=== PATIENT | male | born 1935 | race Caucasian/White ===

== ENCOUNTER → 2018-02-18 | Outpatient (CLI) | payer MEDICARE, OTHER ==
[~2018-02-18] MED LIST: ACETAMINOPHEN-1 EAC1; ADULT LOW DOSE81 MG PO; ALLOPURINOL 10100 M1 PO; AMLODIPINE BESY10 MG PO; BACITRACIN15 GM TP; CARDIZEM CD180 MG PO; CATAPRES0.2 MG PO; CLONIDINE PO; COLACE100 MG PO; COUMADIN6 MG PO; D3; DARVOCET-N 1001 EAC1 PO; DIFLUCAN200 MG PO; DULCOLAX5 MG PO; KEFLEX500 M1; KEFLEX500 MG PO; LASIX 40 MG TAB40 M2 PO; LEVAQUIN 500 M500 M2 PO; LIPITOR 20 MG T20 M1 PO; LIPITOR20 MG PO; LIPITOR40 MG PO; LOPRESSOR25 PO; METOLAZONE 2.52.5 M1 PO; METOLAZONE 5 MG5 MG PO; MISCELLANEOUS; NITROSTAT0.4 MG; NORCO 5-325 TA1 EACH PO; NORFLEX100 MG PO; PERCOCET 5-3251 EACH PO; PLAVIX 75 MG TA75 MG PO; POTASSIUM20 PO; PREDNISONE 10 M10 M1 PO; PREDNISONE 10 M10 MG PO; PREVIDENT473 ML PO; RENAL MULTIVIT1 EACH PO; SORINE 80 MG TA80 M1 PO; SOTALOL160 MG PO; SPIRONOLACTONE25 M1 PO; TOPROL XL50 MG PO; TYLENOL EXTRA500 MG PO; ULTRAM 50MG TAB50 MG PO; UNICOMPLEX M TA1 TA1 PO; VITAMIN D3400 UNIT PO
[2018-02-18 11:11] LABS: ABSOLUTE BASOPHILS 0.1 thou/uL (0.0-0.2); ABSOLUTE EOSINOPHILS 0.2 thou/uL (0.0-0.7); ABSOLUTE MONOCYTES 0.6 thou/uL (0.0-1.2); ABSOLUTE NEUTROPHILS 6.4 thou/uL (1.6-8.1); BASOPHILS 0.7 %; EOSINOPHILS 2.7 %; HEMATOCRIT 42.7 % (42.0-52.0); HEMOGLOBIN 14.3 gm/dL (14.0-18.0); LYMPHOCYTES 11.7 %; MCH 33.2 pg (26.0-34.0); MCHC 33.4 g/dL (28.0-37.0); MCV 99.4 fL (80.0-100.0); MONOCYTES 7.4 %; MPV 7.9 fl. (7.2-11.1); NUCLEATED RBCS 0 /100WBC; PLATELET COUNT* 185 thou/uL (150-400); POLYS 77.5 %; RDW-CV 15.2 % (10.5-14.5); WBC 8.3 thou/uL (4.0-11.0)
[2018-02-18 11:43] LABS: ALBUMIN 3.5 g/dL (3.4-5.0); CALCIUM 9.3 mg/dL (8.5-10.1); CREATININE 2.3 mg/dL (0.6-1.3); PHOSPHORUS* 3.8 mg/dL (2.5-4.9); POTASSIUM 5.1 mmol/L (3.5-5.1)
== END ==
LOC: M.LAB 10:51
PROVIDERS: Internal Medicine Nephrology
DX: N18.4 Chronic kidney disease, stage 4 (severe) (principal); I50.9 Heart failure, unspecified

== ENCOUNTER 2018-06-01 22:21 | Inpatient (IN) | payer MEDICARE, OTHER ==
[~2018-06-01] VITALS: Ht 177.8 cm; Wt 82.6 kg
[~2018-06-01 22:21] MED LIST changes: -D3; -DIFLUCAN200 MG PO; -DULCOLAX5 MG PO; -KEFLEX500 M1; -LEVAQUIN 500 M500 M2 PO; -SPIRONOLACTONE25 M1 PO; -TYLENOL EXTRA500 MG PO; -VITAMIN D3400 UNIT PO
[2018-06-01 22:22] VITALS: BP 115/56
[2018-06-01] MEDS ORDERED: SPIRONOLACTONE25 M1 PO (22:26)
[2018-06-01] MEDS ORDERED: KEFLEX500 M1 (22:26)
[2018-06-01] MEDS ORDERED: D3 (22:27)
[2018-06-01] MEDS ORDERED: DULCOLAX5 MG PO (22:27)
[2018-06-01] MEDS ORDERED: TYLENOL EXTRA500 MG PO (22:27)
[2018-06-01 23:15] LABS: BE -2.5 mmol/L (-2 to +3); HCO3 19.8 mmol/L (22.0-26.0); PCO2 27.9 mmHg (35.0-45.0); PO2 78.9 mmHg (75.0-100.0); pH 7.468 (7.340-7.450)
[2018-06-01 23:18] LABS: URINE BILIRUBIN NEGATIVE (Negative); URINE BLOOD NEGATIVE (Negative); URINE CLARITY CLEAR; URINE COLOR YELLOW; URINE GLUCOSE-RANDOM NEGATIVE (Negative); URINE KETONES NEGATIVE (Negative); URINE LEUKOCYTES-REFLEX NEGATIVE (Negative); URINE NITRITE-REFLEX NEGATIVE (Negative); URINE PROTEIN NEGATIVE (Negative); URINE SPECIFIC GRAVITY 1.015 (1.005-1.030); URINE UROBILINOGEN 0.2 E.U./dl (0.2-1.0)
[2018-06-01 23:19] LABS: MCHC 32.7 g/dL (28.0-37.0); MCV 101.2 fL (80.0-100.0); MPV 8.6 fl. (7.2-11.1); NUCLEATED RBCS 0 /100WBC; PLATELET COUNT* 143 thou/uL (150-400); RBC 4.25 mil/uL (4.50-6.00); RDW-CV 14.5 % (10.5-14.5); WBC 7.9 thou/uL (4.0-11.0)
[2018-06-01 23:25] LABS: CALCIUM 8.4 mg/dL (8.5-10.1); CREATININE 2.5 mg/dL (0.6-1.3); POTASSIUM 3.9 mmol/L (3.5-5.1)
[2018-06-01 23:35] LABS: ALBUMIN 3.5 g/dL (3.4-5.0); MAGNESIUM 1.7 mg/dL (1.8-2.4); TOTAL BILIRUBIN 1.1 mg/dL (<0.1-1.0); TOTAL PROTEIN 6.9 g/dL (6.4-8.2); TROPONIN-I LEVEL 0.08 ng/mL (<0.06)
[2018-06-02 00:48] LABS: INR 1.1; PROTIME 11.6 Seconds (9.20-11.50)
[2018-06-02 01:11] LABS: ABSOLUTE LYMPHOCYTES 0.5 thou/uL (0.8-5.3); ABSOLUTE MONOCYTES 0.1 thou/uL (0.0-1.2); ABSOLUTE NEUTROPHILS 7.3 thou/uL (1.6-8.1); PLATELET ESTIMATE DECREASED
[2018-06-02 01:30] VITALS: BP 103/53
[2018-06-02 01:35] VITALS: BP 98/45
[2018-06-02 04:00] VITALS: BP 97/57
[2018-06-02] MEDS ORDERED: METOLAZONE 2.52.5 M1 PO (04:46)
[2018-06-02] MEDS ORDERED: POTASSIUM20 PO (04:48)
[2018-06-02] MEDS ORDERED: VITAMIN D3400 UNIT PO (04:51)
[2018-06-02 12:00] VITALS: BP 92/49
--- NOTE | 2018-06-02 12:58 | EKG ---
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 : 1935 Requested By: Stephanie Hernandez Order Number: [id number] MD: Kush Hodge Measurements Intervals [place] Rate: 132 P: [place]: QRS: 135 QRSD: 163 T: -25 QT: 361 QTc: 535 Interpretive Statements Atrial fibrillation Right bundle branch block Baseline wander in lead(s) I,II,aVR Compared to ECG 06/27/2017 17:10:53 Ventricular premature complex(es) no longer present Electronically Signed On 06-02-2018 12:58:44 CDT by Kush Hodge [email or web address] <ELECTRONICALLY SIGNED> By: Kush Hodge MD, FACC 06/02/18 1258 2229 2229 Kush Hodge MD, FAC /EPI
[2018-06-02 13:15] LABS: ALBUMIN 3.1 g/dL (3.4-5.0); CALCIUM 8.6 mg/dL (8.5-10.1); CREATININE 2.3 mg/dL (0.6-1.3); POTASSIUM 3.7 mmol/L (3.5-5.1); TOTAL PROTEIN 6.4 g/dL (6.4-8.2)
--- NOTE | 2018-06-02 13:31 | 2DMMODE ---
[place] [address] 2 D/M-MODE ECHOCARDIOGRAM Name: NOLA ONEAL Room: [address] IN [facility]#: [id number] Admission: 06/02/18 Attend Phys: Kamryn Astudillo, Discharge: Date of : 33 Date of Service: 06/02/18 1331 Report #: [id number] THIS REPORT FOR: //name// APPROVED REPORT Study performed: 06/02/2018 10:57:51 EXAM: Comprehensive 2D, Doppler, and color-flow Echocardiogram Patient Location: In-Patient Room #: [facility] Status: routine BSA: 2.05 HR: 92 bpm BP: 97/57 mmHg Rhythm: Atrial Fibrillation Other Information Study Quality: Good Indications Congestive Heart Failure Atrial Fibrillation Dizziness 2D Dimensions IVSd: 23.04 (7-11mm) LVOT Diam: 19.51 (18-24mm) LVDd: 43.29 mm PWd: 13.89 (7-11mm) Ascending Ao: 42.93 (22-36mm) LVDs: 27.01 (25-40mm) Aortic Root: 35.20 mm Volumes Left Atrial Volume (Systole) LA ESV Index: 68.20 mL/m2 Aortic Valve AoV Peak Ken.: 3.31 m/s AO Peak Gr.: 43.83 mmHg LVOT Max P.50 mmHg AO Mean Gr.: 28.24 mmHg LVOT Mean P.56 mmHg LVOT Max V: 1.06 m/s AO V2 VTI: 59.78 cm LVOT Mean V: 0.75 m/s MARY (VTI): 1.04 cm2 LVOT V1 VTI: 20.84 cm AI Gem: 3.42 m/s2 AI PHT: 284.06 [place] [address] 2 D/M-MODE ECHOCARDIOGRAM Name: NOLA ONEAL Room: [address] IN [facility].#: [id number] Admission: 06/02/18 Attend Phys: Kamryn Astudillo, Discharge: Date of : 33 Date of Service: 06/02/18 1331 Report #: [id number] Mitral Valve MV Decel. Time: 181.26 ms MV PHT: 52.57 ms MVA (PHT): 4.19 cm2 TDI Medial E' Ken.: 0.09 m/s Lateral E' Ken.: 0.08 m/s Pulmonary Valve PV Peak Ken.: 1.10 m/s PV Peak Gr.: 4.84 mmHg Tricuspid Valve RAP Estimate: 5.00 mmHg TR Peak Gr.: 25.69 mmHg RVSP: 30.69 mmHg PA Pressure: 30.69 mmHg Left Ventricle The left ventricle is normal size. There is normal LV segmental wall motion. Moderate to severe concentric left ventricular hypertrophy. Left ventricular systolic function is normal. LVEF is 55-60%.. This study is not technically sufficient to allow evaluation of the LV diastolic function due to atrial fibrillation. Right Ventricle The right ventricle is normal size. The right ventricular systolic function is normal. Atria Left atrium is moderately dilated. Right atrium is moderately dilated. Aortic Valve Severe aortic valve sclerosis. Moderate aortic regurgitation. Moderate to severe aortic stenosis. Mitral Valve The mitral valve is normal in structure. Mild mitral regurgitation. No evidence of mitral valve stenosis. Tricuspid Valve The tricuspid valve is normal in structure. Mild tricuspid regurgitation. The RVSP is 30-35 mmHg. Pulmonic Valve The pulmonary valve is normal in structure[place] [address] 2 D/M-MODE ECHOCARDIOGRAM Name: NOLA ONEAL Room: [address]#: [id number] Admission: 06/02/18 Attend Phys: Kamryn Astudillo, Discharge: Date of : 33 Date of Service: 06/02/18 1331 Report #: [id number] regurgitation. Great Vessels The aortic root is normal in size. The ascending aorta is mildly dilated. (4.29 cm) IVC is normal in size and collapses >50% with inspiration. Pericardium There is no pericardial effusion. <Conclusion> The left ventricle is normal size. Moderate to severe concentric left ventricular hypertrophy. Left ventricular systolic function is normal. LVEF is 55-60%.. This study is not technically sufficient to allow evaluation of the LV diastolic function due to atrial fibrillation. Left atrium is moderately dilated. Right atrium is moderately dilated. Severe aortic valve sclerosis. Moderate aortic regurgitation. Moderate to severe aortic stenosis. Mild mitral regurgitation. Mild tricuspid regurgitation. The RVSP is 30-35 mmHg. The ascending aorta is mildly dilated. (4.29 cm) IVC is normal in size and collapses >50% with inspiration. <ELECTRONICALLY SIGNED> By: Kush Hodge MD, FACC 06/02/18 133 30 30 Kush Hodge MD, FACC /INF
[2018-06-02 16:00] VITALS: BP 100/49
[2018-06-02 23:09] LABS: GLYCOHEMOGLOBIN (HGB A1C) 5.3 % (4.8-5.6)
[2018-06-03] VITALS: BP 110/62
[2018-06-03 04:00] VITALS: BP 101/55
[2018-06-03 08:15] VITALS: BP 111/50
[2018-06-03 12:11] LABS: HEMATOCRIT 44.4 % (42.0-52.0); HEMOGLOBIN 14.7 gm/dL (14.0-18.0); MCH 33.5 pg (26.0-34.0); MCV 101.5 fL (80.0-100.0); MPV 9.2 fl. (7.2-11.1); NUCLEATED RBCS 0 /100WBC; PLATELET COUNT* 155 thou/uL (150-400); RBC 4.37 mil/uL (4.50-6.00); RDW-CV 14.9 % (10.5-14.5); WBC 11.2 thou/uL (4.0-11.0)
[2018-06-03 12:14] VITALS: BP 104/51
[2018-06-03 12:15] LABS: CALCIUM 9.3 mg/dL (8.5-10.1); CREATININE 2.3 mg/dL (0.6-1.3); POTASSIUM 4.3 mmol/L (3.5-5.1)
[2018-06-03 12:57] LABS: ABSOLUTE BASOPHILS 0.1 thou/uL (0.0-0.2); ABSOLUTE MONOCYTES 0.8 thou/uL (0.0-1.2); ABSOLUTE NEUTROPHILS 9.3 thou/uL (1.6-8.1)
[2018-06-03 13:00] LABS: LARGE PLATELETS RARE; MACROCYTES 2+; PLATELET ESTIMATE ADEQUATE
[2018-06-03 13:01] LABS: TOXIC GRANULATION Occasional
[2018-06-03 16:00] VITALS: BP 105/54
[2018-06-03 20:00] VITALS: BP 162/82
[2018-06-04] VITALS: BP 106/62
[2018-06-04 04:24] VITALS: BP 114/55
[2018-06-04 05:04] LABS: ABSOLUTE EOSINOPHILS 0.1 thou/uL (0.0-0.7); ABSOLUTE LYMPHOCYTES 1.3 thou/uL (0.8-5.3); ABSOLUTE MONOCYTES 0.6 thou/uL (0.0-1.2); ABSOLUTE NEUTROPHILS 7.7 thou/uL (1.6-8.1); BASOPHILS 0.2 %; EOSINOPHILS 0.9 %; HEMATOCRIT 40.7 % (42.0-52.0); HEMOGLOBIN 13.7 gm/dL (14.0-18.0); LYMPHOCYTES 13.4 %; MCH 33.8 pg (26.0-34.0); MCHC 33.6 g/dL (28.0-37.0); MCV 100.5 fL (80.0-100.0); MONOCYTES 6.3 %; MPV 8.7 fl. (7.2-11.1); NUCLEATED RBCS 0 /100WBC; PLATELET COUNT* 152 thou/uL (150-400); POLYS 79.2 %; RBC 4.05 mil/uL (4.50-6.00); RDW-CV 14.7 % (10.5-14.5); WBC 9.7 thou/uL (4.0-11.0)
[2018-06-04 05:24] LABS: CALCIUM 8.9 mg/dL (8.5-10.1); CREATININE 2.1 mg/dL (0.6-1.3); POTASSIUM 4.1 mmol/L (3.5-5.1)
[2018-06-04 08:00] VITALS: BP 92/70
[2018-06-04 11:43] VITALS: BP 118/57
[2018-06-04 16:00] VITALS: BP 111/53
[2018-06-04 20:00] VITALS: BP 118/60
[2018-06-05] VITALS: BP 111/62
[2018-06-05 04:00] VITALS: BP 118/49
[2018-06-05 08:00] VITALS: BP 125/51
[2018-06-05 12:03] VITALS: BP 106/65
[2018-06-05 15:45] VITALS: BP 105/51
[2018-06-05] MEDS ORDERED: LEVAQUIN 500 M500 M2 PO (16:04)
[2018-06-05] MEDS ORDERED: DIFLUCAN200 MG PO (16:04)
== END 2018-06-05 17:30 | disposition home health service (06) | DRG 557 ==
LOC: M.ERS 22:21 → M.2W 06-02 00:47 → M.TBA-ER 06-02 00:47 → M.2W 06-02 01:25
PROVIDERS: Internal Medicine; Personal Emergency Response Attendant; ADMIT Internal Medicine
PROC: 0R9K3ZX Drainage of Left Shoulder Joint, Percutaneous Approach, Diagnostic (ICD-10-PCS; principal; 2018-06-03)
DX: M75.102 Unspecified rotator cuff tear or rupture of left shoulder, not specified as traumatic (principal); I50.33 Acute on chronic diastolic (congestive) heart failure; I13.0 Hypertensive heart and chronic kidney disease with heart failure and stage 1 through stage 4 chronic kidney disease, or unspecified chronic kidney disease; N18.4 Chronic kidney disease, stage 4 (severe); L03.116 Cellulitis of left lower limb; M25.012 Hemarthrosis, left shoulder; M19.012 Primary osteoarthritis, left shoulder; Z96.643 Presence of artificial hip joint, bilateral; E66.9 Obesity, unspecified; F17.210 Nicotine dependence, cigarettes, uncomplicated; I95.9 Hypotension, unspecified; I48.2 Chronic atrial fibrillation; I25.10 Atherosclerotic heart disease of native coronary artery without angina pectoris; E78.5 Hyperlipidemia, unspecified; I35.0 Nonrheumatic aortic (valve) stenosis; Z68.26 Body mass index [BMI] 26.0-26.9, adult; Z98.49 Cataract extraction status, unspecified eye; Z62.813 Personal history of forced labor or sexual exploitation in childhood; I25.2 Old myocardial infarction; Z95.5 Presence of coronary angioplasty implant and graft; Z88.6 Allergy status to analgesic agent; Z88.1 Allergy status to other antibiotic agents; Z88.8 Allergy status to other drugs, medicaments and biological substances; Z81.8 Family history of other mental and behavioral disorders

== ENCOUNTER → 2018-09-16 | Outpatient (CLI) | payer MEDICARE, OTHER ==
[~2018-09-16] MED LIST changes: +D3; +DIFLUCAN200 MG PO; +DULCOLAX5 MG PO; +KEFLEX500 M1; +LEVAQUIN 500 M500 M2 PO; +SPIRONOLACTONE25 M1 PO; +TYLENOL EXTRA500 MG PO; +VITAMIN D3400 UNIT PO
[2018-09-16 10:11] LABS: ABSOLUTE EOSINOPHILS 0.1 thou/uL (0.0-0.7); ABSOLUTE MONOCYTES 0.6 thou/uL (0.0-1.2); ABSOLUTE NEUTROPHILS 4.7 thou/uL (1.6-8.1); BASOPHILS 0.4 %; HEMATOCRIT 44.3 % (42.0-52.0); LYMPHOCYTES 27.2 %; MCH 34.2 pg (26.0-34.0); MCHC 33.9 g/dL (28.0-37.0); MCV 100.8 fL (80.0-100.0); MONOCYTES 7.5 %; MPV 8.5 fl. (7.2-11.1); NUCLEATED RBCS 0 /100WBC; PLATELET COUNT* 151 thou/uL (150-400); POLYS 63.9 %; RBC 4.39 mil/uL (4.50-6.00); RDW-CV 15.2 % (10.5-14.5); WBC 7.4 thou/uL (4.0-11.0)
[2018-09-16 10:25] LABS: ALBUMIN 3.9 g/dL (3.4-5.0); CREATININE 2.8 mg/dL (0.6-1.3); PHOSPHORUS* 4.9 mg/dL (2.5-4.9); POTASSIUM 3.3 mmol/L (3.5-5.1)
[2018-09-16 12:13] LABS: CREATININE 2.9 mg/dL (0.6-1.3); PHOSPHORUS* 5.1 mg/dL (2.5-4.9)
== END ==
LOC: M.LAB 09:31
PROVIDERS: Internal Medicine Nephrology
DX: I13.0 Hypertensive heart and chronic kidney disease with heart failure and stage 1 through stage 4 chronic kidney disease, or unspecified chronic kidney disease (principal); N18.4 Chronic kidney disease, stage 4 (severe)

== ENCOUNTER → 2018-10-26 | Outpatient (CLI) | payer MEDICARE, OTHER | LOC: M.MRI 16:04 | DX: G31.9 Degenerative disease of nervous system, unspecified (principal); F03.90 Unspecified dementia, unspecified severity, without behavioral disturbance, psychotic disturbance, mood disturbance, and anxiety; Z68.24 Body mass index [BMI] 24.0-24.9, adult; Z88.8 Allergy status to other drugs, medicaments and biological substances ==

== ENCOUNTER 2018-10-31 13:44 | Inpatient (IN) | payer MEDICARE, OTHER ==
[~2018-10-31] VITALS: Ht 177.8 cm; Wt 73.5 kg
[2018-10-31] VITALS (21 sets, daily range): BP systolic 96–127; BP diastolic 38–78
--- NOTE | ~2018-10-31 | EEG ---
[facility] [address] [place] [address] EEG STUDY REPORT Name: NOLA ONEAL Room: [address] IN M.R.#: [id number] Admission: 10/31/18 Attend Phys: Fred Silva MD Discharge: Date of : 34 Report #: [id number] THIS REPORT FOR: //name// CC: Ruben Silva DATE OF SERVICE: 11/02/2018 This patient is being evaluated for an episode of altered mental status. EEG was done by placing the electrodes by standard 10-20 system of electrode placement. Both referential and sequential montages were used for recording. Background activity in this patient's EEG is about 6-7 Hz and 30 microvolt. The patient went to sleep and that is associated with bilateral slowing and vertex sharp waves. Photic stimulation was unremarkable. Throughout the record, no active epileptiform activity was noticed. IMPRESSION: This is an abnormal EEG because it is disorganized and poorly formed. This is a severely abnormal EEG. It is a nonspecific abnormality, which can occur with encephalopathy, effect of psychotropic medication, dementia, etc. Clinical correlation is recommended. By: [id number] Renteria MD /nt
--- NOTE | ~2018-10-31 | CON ---
[facility] [address] [place] [address] CONSULTATION Name: NOLA ONEAL Room: [address] IN M.R.#: [id number] Admission: 10/31/18 Attend Phys: Fred Silva MD Discharge: Date of : 34 Report #: [id number] THIS REPORT FOR: //name// CC: Ruben Silva DATE OF SERVICE: 11/01/2018 REQUESTING PHYSICIAN: Dr. Silva. CHIEF COMPLAINT: Stroke. HISTORY OF PRESENT ILLNESS: The patient is an 83-year-old man with a history of persistent rate-controlled atrial fibrillation who had acute onset of slurred speech and left-sided numbness. He was given TPA in the Emergency Room acutely with resolution of his symptoms. He does still have some residual weakness, but overall has had a significant improvement. He is transferred from the ICU. His atrial fibrillation is rate controlled. This is a known problem. The patient had previously been on warfarin anticoagulation, but then apparently he discontinued it because of bruising issues, but no acid peptic ulcer disease or major GI bleeding, but records are not available at this time. He was referred for WATCHMAN implantation, but refused. His is concerned about him requiring anesthesia for the procedure and also the anticoagulation for 45 days post-procedurally. In regards to his atrial fibrillation, he is asymptomatic. It really does not bother him. He has had some new shortness of breath over the last 2-3 days though. He denies chest pressure or tightness. REVIEW OF SYSTEMS: GASTROINTESTINAL: No abdominal pain, nausea, vomiting, hematemesis. GENITOURINARY: No dysuria or hematuria. NEUROLOGIC: Positive weakness. SKIN: No rashes. PULMONARY: Positive shortness of breath. No cough. PAST MEDICAL HISTORY: In addition to his atrial fibrillation. He has a history of congestive heart failure, encephalopathy, chronic kidney disease. This is his first neurologic event. ALLERGIES: OXYCODONE, ACETAMINOPHEN, METOPROLOL, VANCOMYCIN. HOME MEDICATIONS: Include Aldactone 25 mg daily, metolazone 2.5 [address] p[address] [place] [address] CONSULTATION Name: NOLA ONEAL Room: [address]#: [id number] Admission: 10/31/18 Attend Phys: Fred Silva MD Discharge: Date of : 34 Report #: [id number] clonidine 0.1 mg p.o. b.i.d., Lasix 40 mg p.o. b.i.d., tramadol. PAST SURGICAL HISTORY: Hip replacement, PCI in 2009 to his coronary artery, ankle fracture. FAMILY HISTORY: Noncontributory. SOCIAL HISTORY: He is . No active smoking. PHYSICAL EXAMINATION: VITAL SIGNS: Blood pressure is 108/53, pulse is 93 and AFib. GENERAL: A pleasant elderly male who is alert, in no apparent distress. HEENT: Eyes are intact. No facial asymmetry. NECK: Supple. CARDIOVASCULAR: Irregular. I cannot hear a murmur. LUNGS: Diminished breath sounds. ABDOMEN: Nontender. SKIN: There are numerous ecchymoses. There is no edema. Head CT shows no acute intracranial process. Chest x-ray showed cardiomegaly without cardiopulmonary disease. 06/02/2018, echocardiogram: EF was 55-60%, ezgjvodc-vj-febhgg LVH, ppczjcdq-ur-hzppjd aortic stenosis, mild pulmonary hypertension. IMPRESSION AND PLAN: 1. Acute cerebrovascular accident. He has improved with TPA. Etiology of this is likely embolic. He is currently not able to be anticoagulated, but we will defer to our Neurology colleagues when he can be anticoagulated and I recommended a low dose Eliquis as he does have chronic kidney disease with a GFR of 18. 2. Atrial fibrillation, persistent. This is fairly well rate controlled. I think that he could still be a candidate for WATCHMAN device if he does not want to pursue anticoagulation longer term with a novel agent. This was discussed in lay terms with the patient and his . 3. Qiciivcr-vj-adybqk aortic stenosis. He seems fairly frail to proceed with surgical revascularization. 4. Acute diastolic heart failure. I would diurese him cautiously. By: [id number] Gilbert MD, FACC /nt
[~2018-10-31 13:44] MED LIST changes: -CARDIZEM CD180 MG PO; +DILTIAZEM 180 MG PO; -PREDNISONE 10 M10 MG PO; -SPIRONOLACTONE25 M1 PO
[2018-10-31 14:31] LABS: HEMATOCRIT 44.5 % (42.0-52.0); HEMOGLOBIN 15.3 gm/dL (14.0-18.0); MCH 34.2 pg (26.0-34.0); MCHC 34.3 g/dL (28.0-37.0); MCV 99.6 fL (80.0-100.0); MPV 8.9 fl. (7.2-11.1); RBC 4.47 mil/uL (4.50-6.00); RDW-CV 14.9 % (10.5-14.5)
[2018-10-31 14:37] LABS: APTT 25.9 Seconds (25.0-31.3); INR 1.1; PROTIME 11.4 Seconds (9.20-11.50)
[2018-10-31 14:44] LABS: ALBUMIN 3.7 g/dL (3.4-5.0); CALCIUM 8.6 mg/dL (8.5-10.1); CREATININE 3.2 mg/dL (0.6-1.3); POTASSIUM 3.1 mmol/L (3.5-5.1); TOTAL PROTEIN 6.4 g/dL (6.4-8.2)
[2018-10-31 14:58] LABS: POC CA IONIZED 3.8 mg/dL (4.5-5.3); POC CREATININE 2.1 mg/dL (0.6-1.3); POC HEMOGLOBIN 13.3 g/dL (12.0-17.0); POC POTASSIUM 2.4 mmol/L (3.5-4.9)
[2018-10-31 15:30] LABS: URINE BILIRUBIN NEGATIVE (Negative); URINE BLOOD NEGATIVE (Negative); URINE CLARITY CLEAR; URINE COLOR YELLOW; URINE GLUCOSE-RANDOM NEGATIVE (Negative); URINE KETONES NEGATIVE (Negative); URINE LEUKOCYTES NEGATIVE (Negative); URINE NITRITE NEGATIVE (Negative); URINE PROTEIN NEGATIVE (Negative); URINE UROBILINOGEN 0.2 E.U./dl (0.2-1.0)
[2018-11-01] VITALS (37 sets, daily range): BP systolic 93–154; BP diastolic 40–62
--- NOTE | 2018-11-01 14:09 | EKG ---
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 : 1935 Requested By: Tavares Leonard Order Number: [id number] MD: Blair Gilbert Measurements Intervals [place] Rate: 76 P: [place]: QRS: 139 QRSD: 170 T: -30 QT: 456 QTc: 513 Interpretive Statements Atrial fibrillation, v paced intermittently Ventricular premature complex Right bundle branch block Lateral infarct, age indeterminate Compared to ECG 06/01/2018 22:29:05 Ventricular premature complex(es) now present Myocardial infarct finding now present Electronically Signed On 11-01-2018 14:09:[address] PRODUCTION MANAGER by Blair Gilbert [email or web address] <ELECTRONICALLY SIGNED> By: Blair Gilbert MD, FACC 11/01/18 1409 1441 1441 Blair Gilbert MD, FACC /EPI
[2018-11-02] VITALS: BP 104/58
[2018-11-02 04:00] VITALS: BP 110/54
[2018-11-02 08:00] VITALS: BP 102/59
--- NOTE | 2018-11-02 12:51 | CON ---
[facility] [address] [place] [address] CONSULTATION Name: NOLA ONEAL Room: [address] IN M.R.#: [id number] Admission: 10/31/18 Attend Phys: Fred Silva MD Discharge: Date of : 34 Report #: [id number] THIS REPORT FOR: //name// CC: Ruben Silva HISTORY OF PRESENT ILLNESS: The patient is an 83-year-old male who was at home yesterday when his noticed that he could not speak. She also noticed a left facial droop and weakness in the left arm. 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 In fact, she has to help him dress because of this physical limitation. The patient came to the Emergency Room and was given TPA today. He seems to be back to his baseline. His mentions several things. She states that he was diagnosed with severe dementia by Dr. Mendez. Apparently, he had a mini mental state exam and got 7/30 points. His has also noticed a tremor when he holds out his hands and sometimes when he pulls out his legs. They have an appointment to see a neurologist, but this appointment is not scheduled until December. He is also quite sedentary only going from one recliner to another and he uses a walker at home. He has a history of bilateral hip replacements. They had discussed a wheelchair for the patient because he is so weak. PAST MEDICAL HISTORY: Hypertension, coronary artery disease, atrial fibrillation, congestive heart failure, arthritis, gout, hyperlipidemia. PAST SURGICAL HISTORY: Bilateral hip replacement with a second surgery on the left hip, cardiac stent placement, cataract extraction, laser vein surgery and sclerotherapy in the lower extremities, partial thyroidectomy. MEDICATIONS: At home, spironolactone 25 mg a day, Dulcolax 5 mg daily, metaxalone 2.5 mg as directed, vitamin D 400 units daily, tramadol 50 mg t.i.d., allopurinol 100 mg daily, clonidine 0.1 mg b.i.d., furosemide 40 mg b.i.d., prednisone 10 mg p.r.n., multivitamin daily, PreviDent 473 mL daily, Cardizem CD 180 mg daily, atorvastatin 20 mg daily, Tylenol 2 tablets twice a day. ALLERGIES: OXYCODONE, ACETAMINOPHEN, TAMSULOSIN, METOPROLOL, VANCOMYCIN. PHYSICAL EXAMINATION: VITAL SIGNS: Temperature 36.8, pulse rate 93, respiratory rate 14, blood pressure 108/53. When he came to the Emergency Room, his blood pressure was 114/78, bedside pulse oximetry 99% on room air. NEUROLOGIC: Cranial nerves 2-12 are grossly intact. Motor exam demonstrates symmetrical strength in all 4 extremities with tone and bulk normal. The patient cannot raise his arms even level with his shoulders, when he tries to do that he does have some tremor in his hands. When asked to lift his legs off the [address] [place] [address] CONSULTATION Name: NOLA ONEAL Room: [address]#: [id number] Admission: 10/31/18 Attend Phys: Fred Silva MD Discharge: Date of : 34 Report #: [id number] bed, he can lift his heels no more than a few inches and then his legs begin to shake. Reflexes are trace throughout. Plantar responses are flexor bilaterally. Coordination was difficult for him to do, but there was no evidence of dysmetria. LABORATORY DATA: White blood cell count 9.4, hemoglobin 17, hematocrit 50, MCV 99.1, platelet count 153,000. Urinalysis unremarkable. Chemistry: Sodium 144. Potassium on admission was 2.4, it is now 3.6. Chloride 97, carbon dioxide 26, BUN 87, creatinine 3.3, GFR 18, glucose 94, calcium 9.8, magnesium 2.2, total bilirubin 1.4. Liver functions otherwise unremarkable. IMAGING STUDIES: CT scan of the head demonstrates no acute process. Stable atrophy and microvascular disease noted. IMPRESSION AND PLAN: The patient was in the process of having a stroke. He received TPA and has done quite well with the medication. He will have a repeat CT head. I had discussed an MRI with his , but she states that he had had an MRI ordered by Dr. Mendez several weeks ago. The MRI was done here. Looking through the information, the patient had an MRI head on 10/26/2018. This MRI showed yqnf-fw-cgjnnoye atrophy and severe microvascular disease. There was no evidence of acute infarct. I do not think a repeat MRI head will be of any benefit. I will order carotid ultrasound and echocardiogram for him. The question of antiplatelet therapy was addressed. Apparently, the patient is taking aspirin 81 mg twice a week because he has such easy bruising. At this point, he has been scheduled to receive a full strength aspirin daily, but I am going to decrease this dose to an 81 mg aspirin given that he was only taking it twice a week and may not be able to do that as well either. We also discussed his tremor. I explained to his that he does not have Parkinson's disease, which was a concern of hers. I explained that his tremor is most likely secondary to significant weakness. Whether this is from his underlying orthopedic issues or deconditioning is difficult to know. I suspect it is a combination of both of these things. I do think therapy would be helpful for him. With regard to dementia, I am going to order a B12 and TSH to look for treatable causes of dementia. His also states that for the past several weeks, he has had a headache every day. I explained that this is secondary most likely to medication overuse. He takes tramadol 3 times a day and takes 1000 mg of Tylenol twice a day. Unfortunately, he has significant arthritis and unless a different method of pain control can be found, he may continue to have headaches from taking so much [place] [address] CONSULTATION Name: NOLA ONEAL Room: [address]#: [id number] Admission: 10/31/18 Attend Phys: Fred Silva MD Discharge: Date of : 34 Report #: [id number] As of Friday, Dr. Renteria will be following the patient. I thank you for your kind referral of the patient. <ELECTRONICALLY SIGNED> By: Savanah Hodgson DO 11/02/18 1251 1312 0313Savanah Hodgson, DO /nt
[2018-11-02 13:05] VITALS: BP 99/50
--- NOTE | 2018-11-02 15:46 | 2DMMODE ---
[place] [address] 2 D/M-MODE ECHOCARDIOGRAM Name: NOLA ONEAL Room: [address] IN .R.#: [id number] Admission: 10/31/18 Attend Phys: Fred Silva, Discharge: Date of : 34 Date of Service: 11/02/18 1546 Report #: [id number] THIS REPORT FOR: //name// APPROVED REPORT Study performed: 11/02/2018 14:29:28 EXAM: Comprehensive 2D, Doppler, and color-flow Echocardiogram Patient Location: Bedside BSA: 1.91 HR: 79 bpm BP: 110/54 mmHg Other Information Study Quality: Good Indications CVA/TIA Echo Enhancing Agent Indication: Rule out Shunt Agent(s) / Amount(s) Used: Agitated Saline cc 2D Dimensions IVSd: 20.26 (7-11mm) LVOT Diam: 17.09 (18-24mm) LVDd: 44.81 mm PWd: 14.02 (7-11mm) Ascending Ao: 33.85 (22-36mm) LVDs: 30.05 (25-40mm) Aortic Root: 31.47 mm Volumes Left Atrial Volume (Systole) LA ESV Index: 41.40 mL/m2 Aortic Valve AoV Peak Ken.: 2.75 m/s AO Peak Gr.: 30.25 mmHg LVOT Max P.48 mmHg AO Mean Gr.: 17.40 mmHg LVOT Mean P.38 mmHg LVOT Max V: 0.79 m/s AO V2 VTI: 46.96 cm LVOT Mean V: 0.56 m/s MARY (VTI): 0.79 cm2 LVOT V1 VTI: 16.11 cm AI [place]: 1.67 m/s2 AI PHT: 566.06 [place] [address] 2 D/M-MODE ECHOCARDIOGRAM Name: NOLA ONEAL Room: [address] IN .R.#: [id number] Admission: 10/31/18 Attend Phys: Fred Silva, Discharge: Date of : 34 Date of Service: 11/02/18 1546 Report #: [id number] Mitral Valve E/A Ratio: 3.44 MV Decel. Time: 223.77 ms MV E Max Ken.: 0.88 m/s MV PHT: 64.89 ms MVA (PHT): 3.39 cm2 TDI E/Lateral E': 12.57 E/Medial E': 14.67 Medial E' Ken.: 0.06 m/s Lateral E' Ken.: 0.07 m/s Pulmonary Valve PV Peak Ken.: 0.79 m/s PV Peak Gr.: 2.51 mmHg Tricuspid Valve RAP Estimate: 5.00 mmHg TR Peak Gr.: 23.90 mmHg RVSP: 28.90 mmHg PA Pressure: 28.90 mmHg Left Ventricle The left ventricle is normal size. There is normal LV segmental wall motion. Moderate to severe concentric left ventricular hypertrophy. Left ventricular systolic function is normal. The left ventricular ejection fraction is within the normal range. LVEF is 55-60%. Right Ventricle The right ventricle is normal size. The right ventricular systolic function is normal. Atria Left atrium is mildly dilated. Injection of microcavitations documented no interatrial shunt. Right atrium is dilated. Aortic Valve Moderate aortic valve sclerosis. Moderate aortic regurgitation. Mild to moderate aortic stenosis. Mitral Valve The mitral valve is normal in structure. Mild mitral regurgitation. No evidence of mitral valve stenosis. Tricuspid Valve The tricuspid valve is normal in structure. [place] [address] 2 D/M-MODE ECHOCARDIOGRAM Name: KIMMYNOLA Maier Room: [address]#: [id number] Admission: 10/31/18 Attend Phys: Fred Silva, Discharge: Date of : 33 Date of Service: 11/02/18 1546 Report #: [id number] Pulmonic Valve The pulmonary valve is normal in structure. There is no pulmonic valvular regurgitation. Great Vessels The aortic root is normal in size. IVC is normal in size and collapses >50% with inspiration. Pericardium There is no pericardial effusion. <Conclusion> The left ventricle is normal size. Moderate to severe concentric left ventricular hypertrophy. Left ventricular systolic function is normal. The left ventricular ejection fraction is within the normal range. LVEF is 55-60%. The right ventricle is normal size. Left atrium is mildly dilated. Moderate aortic valve sclerosis. Moderate aortic regurgitation. Mild to moderate aortic stenosis. The mitral valve is normal in structure. Mild mitral regurgitation. The tricuspid valve is normal in structure. IVC is normal in size and collapses >50% with inspiration. There is no pericardial effusion. There is normal LV segmental wall motion. Injection of microcavitations documented no interatrial shunt. <ELECTRONICALLY SIGNED> By: Jeremias Borden MD, FACC 11/02/18 1546 1546 1546 Jeremias Borden MD, FACC /INF
[2018-11-02 16:34] VITALS: BP 114/60
[2018-11-02 20:00] VITALS: BP 104/45
[2018-11-03] VITALS: BP 99/56
[2018-11-03 04:00] VITALS: BP 105/42
[2018-11-03 04:30] LABS: ABSOLUTE EOSINOPHILS 0.1 thou/uL (0.0-0.7); ABSOLUTE LYMPHOCYTES 2.1 thou/uL (0.8-5.3); ABSOLUTE MONOCYTES 0.6 thou/uL (0.0-1.2); ABSOLUTE NEUTROPHILS 6.4 thou/uL (1.6-8.1); BASOPHILS 0.4 %; HEMATOCRIT 54.2 % (42.0-52.0); HEMOGLOBIN 18.4 gm/dL (14.0-18.0); LYMPHOCYTES 22.5 %; MCH 33.8 pg (26.0-34.0); MCV 99.5 fL (80.0-100.0); MONOCYTES 6.5 %; MPV 9.1 fl. (7.2-11.1); NUCLEATED RBCS 0 /100WBC; PLATELET COUNT* 144 thou/uL (150-400); POLYS 69.6 %; RBC 5.44 mil/uL (4.50-6.00); RDW-CV 14.9 % (10.5-14.5); WBC 9.2 thou/uL (4.0-11.0)
[2018-11-03 05:08] LABS: CALCIUM 9.6 mg/dL (8.5-10.1); CREATININE 2.9 mg/dL (0.6-1.3); MAGNESIUM 2.1 mg/dL (1.8-2.4)
[2018-11-03 05:15] LABS: POTASSIUM 2.9 mmol/L (3.5-5.1)
[2018-11-03 08:00] VITALS: BP 118/59
[2018-11-03 11:41] VITALS: BP 107/53
[2018-11-04 01:01] VITALS: BP 118/52
[2018-11-04 05:01] LABS: ABSOLUTE EOSINOPHILS 0.1 thou/uL (0.0-0.7); ABSOLUTE LYMPHOCYTES 1.6 thou/uL (0.8-5.3); ABSOLUTE MONOCYTES 0.7 thou/uL (0.0-1.2); ABSOLUTE NEUTROPHILS 6.8 thou/uL (1.6-8.1); BASOPHILS 0.4 %; EOSINOPHILS 1.1 %; HEMATOCRIT 51.4 % (42.0-52.0); HEMOGLOBIN 17.5 gm/dL (14.0-18.0); LYMPHOCYTES 17.2 %; MCH 34.2 pg (26.0-34.0); MCHC 34.1 g/dL (28.0-37.0); MCV 100.3 fL (80.0-100.0); MONOCYTES 7.2 %; NUCLEATED RBCS 0 /100WBC; PLATELET COUNT* 128 thou/uL (150-400); POLYS 74.1 %; RBC 5.12 mil/uL (4.50-6.00); RDW-CV 15.1 % (10.5-14.5); WBC 9.2 thou/uL (4.0-11.0)
[2018-11-04 05:15] LABS: CALCIUM 9.7 mg/dL (8.5-10.1); CREATININE 2.7 mg/dL (0.6-1.3); POTASSIUM 3.3 mmol/L (3.5-5.1)
[2018-11-04 08:00] VITALS: BP 105/56
[2018-11-04 12:00] VITALS: BP 89/54
[2018-11-04] MEDS ORDERED: SPIRONOLACTONE25 MG PO (12:14)
[2018-11-04] MEDS ORDERED: ATORVASTATIN CA40 MG PO (12:14)
[2018-11-04] MEDS ORDERED: SENNA PLUS TAB1 EACH PO (12:15)
[2018-11-04] MEDS ORDERED: MIRALAX17 GM PO (12:15)
[2018-11-04] MEDS ORDERED: ELIQUIS5 MG PO (12:16)
[2018-11-04] MEDS ORDERED: ASPIRIN EC81 M1 PO (12:16)
[2018-11-04] MEDS ORDERED: VITAMIN D1000 UNI1 PO (12:16)
[2018-11-04] MEDS ORDERED: ULTRAM 50MG TAB50 MG PO (12:17)
[2018-11-04] MEDS ORDERED: LEXAPRO 10 MG T10 M1 PO (12:45)
[2018-11-04] MEDS ORDERED: PREDNISONE 10 M10 MG PO (16:26)
[2018-11-04] MEDS ORDERED: SPIRONOLACTONE25 M1 PO (16:26)
== END 2018-11-04 17:00 | DRG 61 ==
LOC: M.ERS 13:44 → M.TBA-ER 15:11 → M.2W 15:11 → M.ICU 18:17 → M.2W 11-01 11:35
PROVIDERS: Emergency Medicine Emergency Medical Services; Family Medicine
DX: I63.9 Cerebral infarction, unspecified (principal); I50.31 Acute diastolic (congestive) heart failure; I48.1 Persistent atrial fibrillation; I13.0 Hypertensive heart and chronic kidney disease with heart failure and stage 1 through stage 4 chronic kidney disease, or unspecified chronic kidney disease; N18.4 Chronic kidney disease, stage 4 (severe); I35.0 Nonrheumatic aortic (valve) stenosis; Z96.643 Presence of artificial hip joint, bilateral; E66.9 Obesity, unspecified; F17.210 Nicotine dependence, cigarettes, uncomplicated; M13.812 Other specified arthritis, left shoulder; E78.5 Hyperlipidemia, unspecified; I48.2 Chronic atrial fibrillation; F32.9 Major depressive disorder, single episode, unspecified; F03.90 Unspecified dementia, unspecified severity, without behavioral disturbance, psychotic disturbance, mood disturbance, and anxiety; M13.811 Other specified arthritis, right shoulder; I25.10 Atherosclerotic heart disease of native coronary artery without angina pectoris; M10.9 Gout, unspecified; Z87.81 Personal history of (healed) traumatic fracture; Z68.23 Body mass index [BMI] 23.0-23.9, adult; I25.2 Old myocardial infarction; Z95.5 Presence of coronary angioplasty implant and graft; Z79.899 Other long term (current) drug therapy; Z88.1 Allergy status to other antibiotic agents; Z88.8 Allergy status to other drugs, medicaments and biological substances; Z81.8 Family history of other mental and behavioral disorders; E87.6 Hypokalemia

== ENCOUNTER 2018-11-09 19:45 | Inpatient (IN) | payer MEDICARE, OTHER ==
[~2018-11-09] VITALS: Ht 182.9 cm; Wt 90.7 kg
[~2018-11-09 19:45] MED LIST changes: +ASPIRIN EC81 M1 PO; +ATORVASTATIN CA40 MG PO; +ELIQUIS5 MG PO; +LEXAPRO 10 MG T10 M1 PO; +MIRALAX17 GM PO; +PREDNISONE 10 M10 MG PO; +SENNA PLUS TAB1 EACH PO; +SPIRONOLACTONE25 M1 PO; +SPIRONOLACTONE25 MG PO; +VITAMIN D1000 UNI1 PO
[2018-11-09 19:48] VITALS: BP 105/55
[2018-11-09 20:09] LABS: HEMATOCRIT 51.4 % (42.0-52.0); HEMOGLOBIN 17.6 gm/dL (14.0-18.0); MCHC 34.3 g/dL (28.0-37.0); MCV 99.2 fL (80.0-100.0); MPV 8.3 fl. (7.2-11.1); NUCLEATED RBCS 0 /100WBC; PLATELET COUNT* 194 thou/uL (150-400); RBC 5.18 mil/uL (4.50-6.00); WBC 9.5 thou/uL (4.0-11.0)
[2018-11-09 20:18] LABS: INR 1.1; PROTIME 10.9 Seconds (9.20-11.50)
[2018-11-09 20:28] LABS: CALCIUM 9.4 mg/dL (8.5-10.1); CREATININE 3.8 mg/dL (0.6-1.3); POTASSIUM 4.3 mmol/L (3.5-5.1)
[2018-11-09 20:29] LABS: TROPONIN-I LEVEL 0.81 ng/mL (<0.06)
[2018-11-09 20:31] LABS: ALBUMIN 3.5 g/dL (3.4-5.0); TOTAL PROTEIN 7.1 g/dL (6.4-8.2)
[2018-11-09 20:45] LABS: ABSOLUTE LYMPHOCYTES 0.8 thou/uL (0.8-5.3); ABSOLUTE MONOCYTES 0.6 thou/uL (0.0-1.2); ABSOLUTE NEUTROPHILS 8.2 thou/uL (1.6-8.1)
[2018-11-09 20:46] LABS: PLATELET ESTIMATE ADEQUATE
[2018-11-09 20:47] LABS: LARGE PLATELETS OCCASIONAL
[2018-11-09] MEDS ORDERED: PROVIGIL 100 M100 MG (21:31)
[2018-11-09] MEDS ORDERED: PREDNISONE 5 MG5 M1 (21:33)
[2018-11-09 23:40] VITALS: BP 110/53
[2018-11-10 04:35] VITALS: BP 97/49
[2018-11-10 08:15] VITALS: BP 101/53
[2018-11-10 08:46] LABS: CALCIUM 8.6 mg/dL (8.5-10.1); CREATININE 3.1 mg/dL (0.6-1.3); MAGNESIUM 2.6 mg/dL (1.8-2.4); POTASSIUM 3.6 mmol/L (3.5-5.1)
--- NOTE | 2018-11-10 11:36 | EKG ---
[place] [address] ELECTROCARDIOGRAM REPORT Name: NOLA ONEAL Room: [place] [address] ADM IN .R.#: [id number] Admission: 11/09/18 Attend Phys: Mathieu Julian MD Discharge: Date of : 34 Report #: [id number] THIS REPORT FOR: //name// [facility] Test Date: 2018-11-09 Test Time: 20:00:20 Pat Name: NOLA ONEAL Department: Room: [facility] Gender: Husbandry Technician: Luh SRIVASTAVA : 1935 Requested By: Baljit Gray Order Number: [id number] MD: Kush Hodge Measurements Intervals [place] Rate: 80 P: [place]: QRS: 146 QRSD: 161 T: -27 QT: 433 QTc: 500 Interpretive Statements Atrial fibrillation Right bundle-branch block Lateral infarct, age indeterminate Compared to ECG 10/31/2018 14:41:08 Ventricular premature complex(es) no longer present Electronically Signed On 11-10-2018 11:36:26 CDT by Kush Hodge [email or web address] <ELECTRONICALLY SIGNED> By: Kush Hodge MD, FACC 11/10/18 1136 99 99 Kush Hodge MD, FACC /EPI
[2018-11-10 11:55] LABS: URINE BILIRUBIN NEGATIVE (Negative); URINE BLOOD NEGATIVE (Negative); URINE CLARITY CLEAR; URINE COLOR YELLOW; URINE GLUCOSE-RANDOM NEGATIVE (Negative); URINE KETONES NEGATIVE (Negative); URINE LEUKOCYTES-REFLEX NEGATIVE (Negative); URINE NITRITE-REFLEX NEGATIVE (Negative); URINE PROTEIN NEGATIVE (Negative); URINE SPECIFIC GRAVITY 1.015 (1.005-1.030); URINE UROBILINOGEN 0.2 E.U./dl (0.2-1.0)
[2018-11-10 12:08] VITALS: BP 102/45
[2018-11-10 16:48] VITALS: BP 102/50
[2018-11-11 10:52] VITALS: BP 102/50
== END 2018-11-11 11:00 | disposition hospice, inpatient (51) | DRG 91 ==
LOC: M.ERS 19:45 → M.TBA-ER 20:53 → M.2W 20:53 → M.TBA-ER 11-10 04:59 → M.2W 11-10 12:29
PROVIDERS: Emergency Medicine; Internal Medicine; ADMIT Internal Medicine
DX: G92 Toxic encephalopathy (principal); N17.0 Acute kidney failure with tubular necrosis; E43 Unspecified severe protein-calorie malnutrition; N18.4 Chronic kidney disease, stage 4 (severe); I50.32 Chronic diastolic (congestive) heart failure; E27.40 Unspecified adrenocortical insufficiency; E86.0 Dehydration; Z96.7 Presence of other bone and tendon implants; Z96.643 Presence of artificial hip joint, bilateral; M19.90 Unspecified osteoarthritis, unspecified site; I35.0 Nonrheumatic aortic (valve) stenosis; Z66 Do not resuscitate; I25.10 Atherosclerotic heart disease of native coronary artery without angina pectoris; E66.9 Obesity, unspecified; I48.91 Unspecified atrial fibrillation; F03.90 Unspecified dementia, unspecified severity, without behavioral disturbance, psychotic disturbance, mood disturbance, and anxiety; Z95.5 Presence of coronary angioplasty implant and graft; I25.2 Old myocardial infarction; Z98.49 Cataract extraction status, unspecified eye; Z68.27 Body mass index [BMI] 27.0-27.9, adult; Z86.73 Personal history of transient ischemic attack (TIA), and cerebral infarction without residual deficits; Z79.82 Long term (current) use of aspirin; Z88.0 Allergy status to penicillin; Z88.8 Allergy status to other drugs, medicaments and biological substances; Z88.6 Allergy status to analgesic agent